=== PATIENT | female | born 1975 | race Caucasian/White ===

== ENCOUNTER → 2017-05-27 | Outpatient (CLI) | payer BC ==
[~2017-05-27] MED LIST: AUGMENTIN 875-1 EACH PO; BACTRIM DS TAB1 EACH; DOXEPIN 25 MG C25 M1; HYDROCHLOROTH12.5 MG PO; HYDROCODONE-AP1 EAC6 PO; IBUPROFEN 800800 M1 PO; MELATONIN10 MG; PAROXETINE CR37.5 MG; PAXIL PO; PERCOCET 7.5-31 EACH; PERCOCET 7.5-31 EACH PO; PR NATAL 400 C1 EACH PO; SENNA; SIMVASTATIN10 MG; SYNTHROID50 MCG; TOPAMAX50 MG; WELLBUTRIN 75 M75 M1 PER TUBE; WELLBUTRIN XL150 M2; XANAX1 MG; ZOCOR 20 MG TAB20 M1 PO; ZYRTEC10 M2 PO
== END ==
LOC: M.RAD 12:57
DX: Z12.31 Encounter for screening mammogram for malignant neoplasm of breast (principal)

== ENCOUNTER 2018-09-17 21:07 | Emergency (ER) | payer BC ==
[~2018-09-17] VITALS: Ht 160 cm; Wt 113.4 kg
[2018-09-17] MEDS ORDERED: MOBIC15 MG PO (21:28)
[2018-09-17 21:49] LABS: ABSOLUTE BASOPHILS 0.1 thou/uL (0.0-0.2); ABSOLUTE EOSINOPHILS 0.1 thou/uL (0.0-0.7); ABSOLUTE LYMPHOCYTES 1.5 thou/uL (0.8-5.3); ABSOLUTE MONOCYTES 0.5 thou/uL (0.0-1.2); ABSOLUTE NEUTROPHILS 5.1 thou/uL (1.6-8.1); BASOPHILS 0.7 %; EOSINOPHILS 1.9 %; HEMATOCRIT 41.3 % (37.0-47.0); HEMOGLOBIN 14.1 gm/dL (12.0-15.0); LYMPHOCYTES 21.3 %; MCH 32.3 pg (26.0-34.0); MCHC 34.2 g/dL (28.0-37.0); MCV 94.3 fL (80.0-100.0); MONOCYTES 6.2 %; MPV 9.2 fl. (7.2-11.1); NUCLEATED RBCS 0 /100WBC; PLATELET COUNT* 212 thou/uL (150-400); POLYS 69.9 %; RBC 4.38 mil/uL (4.20-5.00); RDW-CV 13.6 % (10.5-14.5); WBC 7.3 thou/uL (4.0-11.0)
[2018-09-17 22:01] LABS: ALBUMIN 3.5 g/dL (3.4-5.0); CALCIUM 9.2 mg/dL (8.5-10.1); CREATININE 0.8 mg/dL (0.6-1.3); POTASSIUM 3.9 mmol/L (3.5-5.1); TOTAL BILIRUBIN 0.1 mg/dL (<0.1-1.0); TOTAL PROTEIN 6.7 g/dL (6.4-8.2)
[2018-09-18 00:26] LABS: URINE BILIRUBIN NEGATIVE (Negative); URINE BLOOD TRACE (Negative); URINE CLARITY CLEAR; URINE COLOR YELLOW; URINE GLUCOSE-RANDOM NEGATIVE (Negative); URINE KETONES NEGATIVE (Negative); URINE LEUKOCYTES NEGATIVE (Negative); URINE NITRITE NEGATIVE (Negative); URINE PROTEIN NEGATIVE (Negative); URINE UROBILINOGEN 0.2 E.U./dl (0.2-1.0)
[2018-09-18] MEDS ORDERED: NORCO 5-325 TA1 EACH PO (00:55)
[2018-09-18] MEDS ORDERED: TORADOL 10 MG T10 MG PO (00:55)
[2018-09-18 01:09] VITALS: BP 112/59
== END 2018-09-18 01:11 | disposition home or self-care (01) ==
LOC: M.ERS 21:07
PROVIDERS: Physician Assistant
DX: R10.2 Pelvic and perineal pain (principal); E66.01 Morbid (severe) obesity due to excess calories; Z68.41 Body mass index [BMI] 40.0-44.9, adult; Z88.0 Allergy status to penicillin

== ENCOUNTER → 2019-06-24 | Outpatient (CLI) | payer BC ==
[~2019-06-24] MED LIST changes: +MOBIC15 MG PO; +NORCO 5-325 TA1 EACH PO; +TORADOL 10 MG T10 MG PO
== END ==
LOC: M.RAD 13:26
DX: Z12.31 Encounter for screening mammogram for malignant neoplasm of breast (principal)